=== PATIENT | male | born 1980 | race Caucasian/White ===

== ENCOUNTER → 2020-02-09 17:50 | Outpatient (CLI) | payer SELFPAY ==
[2020-02-09 18:52] LABS: T4 (Thyroxine) 17.1 ug/dl (5.53-11.0)
[2020-02-09 19:06] LABS: Thyroid Stimulating Hormone < 0.02 uIU/mL (0.465-4.68)
== END ==
PROVIDERS: Visit Provider Family Medicine
DX: E03.9 Hypothyroidism, unspecified (principal)
CPT/HCPCS: 84436; 84443